=== PATIENT | female | born 1945 | race Native Hawaiian/Other Pacific Islander ===

== ENCOUNTER 2022-04-15 18:59 | Emergency (ER) | payer OTHER ==
[~2022-04-15] VITALS: Ht 170.2 cm; Wt 78.5 kg
[~2022-04-15 18:59] MED LIST: NITR100C PO
[2022-04-15 19:06] VITALS: BP 126/77; TEMP 98
[2022-04-15 19:30] LABS: PLATELET COUNT 162 K/uL (152-353)
[2022-04-15 19:40] LABS: POTASSIUM 3.3 mmol/L (3.6-5.2)
[2022-04-16] MEDS ORDERED: AMLODIPINE BESYLATE PO (10:28)
[2022-04-16] MEDS ORDERED: ASPIRIN 81 LOW81 MG PO (10:29)
[2022-04-16] MEDS ORDERED: AZO CRANBERY UR1 CAP PO (10:33)
[2022-04-16] MEDS ORDERED: LEVOFLOXACIN500 MG PO ×2 (10:36→10:37)
[2022-04-16] MEDS ORDERED: DONEPEZIL HYDRO10 M1 PO (10:38)
[2022-04-16] MEDS ORDERED: ACID CONTROL10 MG PO (10:39)
[2022-04-16] MEDS ORDERED: LORA0.5T17 PO (10:41)
[2022-04-16] MEDS ORDERED: MEMA10TA2 PO (10:42)
[2022-04-16] MEDS ORDERED: NITROFURANTOIN25 MG PO (10:43)
[2022-04-16] MEDS ORDERED: NITR50CA PO (10:45)
[2022-04-16] MEDS ORDERED: NYAMYC100000 UNI TOP (10:58)
[2022-04-16] MEDS ORDERED: PANTOPRAZOLE 40MG TA PO (11:00)
[2022-04-16] MEDS ORDERED: QUETIAPINE25 MG PO (11:04)
[2022-04-16] MEDS ORDERED: QUETIAPINE50 MG PO ×2 (11:08→11:09)
[2022-04-16] MEDS ORDERED: XARELTO20 MG PO (11:12)
[2022-04-16] MEDS ORDERED: ZINC OXIDE 20% TOP (11:14)
[2022-04-16] MEDS ORDERED: TYLENOL325 MG PO (11:16)
[2022-04-16] MEDS ORDERED: FURO40TA93 PO (11:19)
[2022-04-16] MEDS ORDERED: IPRASOL5 INH (11:24)
[2022-04-16] MEDS ORDERED: MELATONIN3 M1 PO (11:26)
[2022-04-16] MEDS ORDERED: MUCINEX600 MG PO (11:28)
== END 2022-04-15 20:29 | disposition still patient (30) ==
LOC: ED 18:59
PROVIDERS: Emergency Medicine
DX: F03.91 Unspecified dementia, unspecified severity, with behavioral disturbance (principal); R45.1 Restlessness and agitation; E87.6 Hypokalemia; R93.89 Abnormal findings on diagnostic imaging of other specified body structures; Z11.52 Encounter for screening for COVID-19; Z04.6 Encounter for general psychiatric examination, requested by authority
CPT/HCPCS: 36415; 80053; 85027; 87635; 93005; 99283; U0003